=== PATIENT | female | born 2000 | race Caucasian/White ===

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

== ENCOUNTER 2025-01-30 14:33 | Emergency (ER) | payer OTHER ==
[~2025-01-30] VITALS: Ht 154.9 cm; Wt 52.6 kg
[~2025-01-30 14:33] MED LIST: DICLOFENAC SODI75 MG PO; NORFLEX100MG PO
[2025-01-30 17:30] LABS: BASO % 0.2 % (0.1-1.2); EOS # 0.23 (0.04-0.54); EOS % 2.6 % (0.7-7.0); HEMATOCRIT 32.5 % (34.1-44.9); HEMOGLOBIN 11.5 g/dL (11.2-15.7); LYMPH # 1.42 (1.18-3.74); MEAN CORPUSCULAR HEMOGLOBIN 29.8 pg (25.6-32.2); MONO # 0.44 (0.24-0.82); NEUT # 6.75 (1.56-6.13); PLATELET COUNT 192 K/uL (163-369); RED BLOOD COUNT 3.86 M/uL (3.93-5.22)
[2025-01-30 17:53] LABS: INR 1.02; PARTIAL THROMBOPLASTIN TIME 29.1 SECONDS (22.0-34.0); PROTHROMBIN TIME 11.1 SECONDS (9.0-11.5)
[2025-01-30 18:30] LABS: BILIRUBIN TOTAL 0.21 mg/dL (0.3-1.2); CALCIUM 8.5 mg/dL (8.5-10.1); CREATININE SERUM 0.58 mg/dL (0.55-1.02); GFR 127.72; POTASSIUM 3.55 mEq/L (3.5-5.1)
[2025-01-30] MEDS ORDERED: FAMOtidine 10 MG/ML (4ML VIAL) IV ONE (20:45)
[2025-01-30] MEDS ORDERED: MORPHINE SULFATE 2 MG/ML SYRINGE IV ONE (21:00)
[2025-01-30] MEDS ORDERED: PIPERACILLIN/TAZOBACTAM SODIUM 3.375 GM VIAL IV ONE ×2 (21:00→21:48)
[2025-01-30] MEDS ORDERED: 0.9 % SODIUM CHLORIDE 1,000 ML IV ONE (21:00)
[2025-01-30] MEDS ORDERED: FAMOTIDINE/PF 20 MG/2 ML VIAL ONE (21:49)
[2025-01-31 00:36] LABS: BASO % 0.1 % (0.1-1.2); EOS % 3.5 % (0.7-7.0); HEMOGLOBIN 11.4 g/dL (11.2-15.7); LYMPH # 1.65 (1.18-3.74); LYMPH % 19.3 % (19.3-53.1); MEAN CORPUSCULAR HEMOGLOBIN 28.8 pg (25.6-32.2); MONO # 0.42 (0.24-0.82); MONO % 4.9 % (4.7-12.5); NEUT # 6.13 (1.56-6.13); PLATELET COUNT 189 K/uL (163-369); RED BLOOD COUNT 3.96 M/uL (3.93-5.22); RED CELL DISTRIBUTION WIDTH 12.9 % (11.6-14.4)
[2025-01-31] MEDS ORDERED: KETOROLAC TROMETHAMINE 30 MG VIAL IV STA (08:09)
[2025-01-31] MEDS ORDERED: KETOROLAC TROMETHAMINE 30 MG VIAL ONE (08:30)
[2025-01-31] MEDS ORDERED: NAPR500T14 PO (09:22)
[2025-01-31] MEDS ORDERED: MONODOX100 MG PO (09:22)
== END 2025-01-31 10:28 | disposition home or self-care (01) ==
LOC: ER 14:56
PROVIDERS: General Practice
DX: O02.1 Missed abortion (principal)

== ENCOUNTER 2025-01-31 13:31 | Inpatient (IN) | payer OTHER ==
[~2025-01-31] VITALS: Ht 154.9 cm; Wt 52.6 kg
[~2025-01-31 13:31] MED LIST changes: +MONODOX100 MG PO; +NAPR500T14 PO
--- NOTE | 2025-01-31 14:26 | NUR ---
PTE REFIERE EMBARAZADA DE 16 SEMANAS DE GESTACION Y FETO MUERTO . PTE JODI E NELL HOY DE LA LIN DE EMERGENCIA POR EL DR.RODRIGUEZ WATTS. PTE REFIERE MUCHO DOLOR PELVICO Y CONTRACIONES. SE LE FRANCES S/V Y SE UBICA EN GERTRUDIS.
[2025-01-31] MEDS ORDERED: RINGERS SOLUTION,LACTATED 1,000 ML IV ONE (15:00)
[2025-01-31] MEDS ORDERED: MORPHINE SULFATE 4 MG/ML VIAL IV ONE (15:00)
[2025-01-31] MEDS ORDERED: PIPERACILLIN/TAZOBACTAM SODIUM 3.375 GM VIAL IV ONE ×2 (15:15→18:35)
[2025-01-31 18:00] VITALS: BP 126/70; O2SAT 100
[2025-01-31 18:30] LABS: BASO % 0.2 % (0.1-1.2); EOS # 0.06 (0.04-0.54); EOS % 0.5 % (0.7-7.0); HEMATOCRIT 34.1 % (34.1-44.9); LYMPH # 0.85 (1.18-3.74); LYMPH % 6.8 % (19.3-53.1); MEAN CORPUSCULAR HEMOGLOBIN 29.4 pg (25.6-32.2); MONO # 0.38 (0.24-0.82); NEUT # 11.23 (1.56-6.13); NEUT % 89.3 % (34.0-71.1); PLATELET COUNT 176 K/uL (163-369); RED BLOOD COUNT 4.08 M/uL (3.93-5.22)
[2025-01-31] MEDS ORDERED: ACETAMINOPHEN 500 MG GEL..CAP PO ONE (18:34)
[2025-01-31 21:50] LABS: INR 1.07; PARTIAL THROMBOPLASTIN TIME 30.5 SECONDS (22.0-34.0); PROTHROMBIN TIME 11.6 SECONDS (9.0-11.5)
[2025-01-31 21:55] LABS: ALBUMIN 2.9 gm/dL (3.4-5.0); BILIRUBIN TOTAL 0.38 mg/dL (0.3-1.2); CALCIUM 8.7 mg/dL (8.5-10.1); CREATININE SERUM 0.52 mg/dL (0.55-1.02); GFR 144.87; GLOBULINA 3.4 G/DL (2.4-3.5); POTASSIUM 3.84 mEq/L (3.5-5.1); TOTAL PROTEIN 6.3 gm/dL (6.4-8.2)
[2025-02-01] VITALS: BP 102/54; O2SAT 100
[2025-02-01 04:19] VITALS: BP 115/80
[2025-02-01 08:00] VITALS: BP 97/60
[2025-02-01] MEDS ORDERED: POVIDONE-IODINE 118 ML BOTT TOP ONE (12:44)
[2025-02-01] MEDS ORDERED: CHLORHEXIDINE GLUCONATE 120 ML BOTTLE TOP ONE (12:52)
[2025-02-01] MEDS ORDERED: RINGERS SOLUTION,LACTATED 1,000 ML IV SCH (14:15)
[2025-02-01] MEDS ORDERED: DOXYCYCLINE HYCLATE 100MG EACH PO SCH (17:00)
[2025-02-01] MEDS ORDERED: NAPROXEN 500 MG TABLET PO SCH (17:00)
[2025-02-01 17:19] LABS: BASO % 0.1 % (0.1-1.2); EOS # 0.12 (0.04-0.54); EOS % 1.3 % (0.7-7.0); LYMPH # 1.33 (1.18-3.74); LYMPH % 14.2 % (19.3-53.1); MEAN CORPUSCULAR HEMOGLOBIN 29.6 pg (25.6-32.2); MONO # 0.47 (0.24-0.82); NEUT # 7.39 (1.56-6.13); NEUT % 79.2 % (34.0-71.1); PLATELET COUNT 144 K/uL (163-369); RED BLOOD COUNT 2.94 M/uL (3.93-5.22); RED CELL DISTRIBUTION WIDTH 13.2 % (11.6-14.4)
[2025-02-01 17:30] LABS: HEMATOCRIT 25.2 % (34.1-44.9); HEMOGLOBIN 8.7 g/dL (11.2-15.7)
[2025-02-01 18:00] VITALS: BP 119/74
[2025-02-01 22:55] VITALS: O2SAT 100
[2025-02-02 01:33] VITALS: BP 119/74
[2025-02-02 08:00] VITALS: BP 111/73
[2025-02-02] MEDS ORDERED: NAPR500T14 PO (09:03)
[2025-02-02] MEDS ORDERED: MAXFE CAPLET1 EAC1 PO (09:03)
[2025-02-02] MEDS ORDERED: MONODOX100 MG PO (09:03)
== END 2025-02-02 09:10 | disposition home or self-care (01) | DRG 770 ==
LOC: ER 14:07 → OB/GYN 16:14 → SEC-K 16:14 → OB/GYN 02-01 01:17
PROVIDERS: General Practice; ADMIT Obstetrics & Gynecology; ATTEND Obstetrics & Gynecology
PROC: 10D17ZZ Extraction of Products of Conception, Retained, Via Natural or Artificial Opening (ICD-10-PCS; principal; 2025-02-01 14:15)
DX: O02.1 Missed abortion (principal); Z3A.15 15 weeks gestation of pregnancy